=== PATIENT | female | born 1985 | race Two or more races ===

== ENCOUNTER 2019-05-01 11:55 | Emergency (ER) | payer MEDICAID ==
[2019-05-01] MEDS ORDERED: Ondansetron 4 MG/2 ML SDV IVPUSH ONE (12:34)
[2019-05-01] MEDS ORDERED: Sodium Chloride 0.9% 10 ML Syringe FLUSH PRN (12:34)
[2019-05-01] MEDS ORDERED: Sodium Chloride 0.9% 1,000 ML IV STA (12:34)
[2019-05-01] MEDS ORDERED: HYDROmorphone 0.5 MG/0.5 ML Syringe IVPUSH ONE (12:36)
--- NOTE | 2019-05-01 12:45 | EDM.PDOC ---
<Shobha Soliz - Last Filed: 05/01/19 12:35> ED HPI GENERAL MEDICAL PROBLEM - General Chief Complaint: Abdominal Pain Stated Complaint: ABDOMINAL PAIN Time Seen by Provider: 05/01/19 12:11 Source of Information: Reports: Patient History Limitations: Reports: No Limitations - History of Present Illness INITIAL COMMENTS - FREE TEXT/NARRATIVE: Patient is a pleasant 34-year-old female who presents to the ED with complaints of upper abdominal pain, nausea, vomiting, and diarrhea. She reports yesterday she felt nauseous all day and then last night at 8pm she started having diarrhea. She had three total episodes of diarrhea before she went to bed. No blood noted in the stool. This morning she woke up at 0300 because of abdominal pain in the upper quadrants. She struggled to fall back asleep because she couldn't get comfortable. Around 0700 she started having episodes of emesis. The last episode of emesis was at 0930. She denies noting blood in the emesis. At time of exam she is complaining of burning discomfort to the upper quadrants and rates it a 7/10. She is nauseous and has a mild headache. She states she gets heart burn very easily and had a test in the past to test for an ulcer, which was negative. She does not take anything for the heart burn. She denies chest pain, shortness of breath, and fever/chills. Of note, the patient's daughter had similar symptoms yesterday and felt better this morning when she woke up. She also noted that she ate at [employer] for lunch yesterday. She is not sure if she has the stomach flu her daughter had, food poisoning from [employer], or something more serious. 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 Denies: Shortness of Breath Cardiovascular: Reports: No Symptoms. Denies: Chest Pain, Edema, Lightheadedness, Syncope GI/Abdominal: Reports: Abdominal Pain (upper quadrants), Diarrhea (yesterday - 3 total episodes), Decreased Appetite, Flatus, Nausea, Vomiting (3 episodes this morning). Denies: Black Stool, Bloody Stool, Hematemesis, Melena : Reports: No Symptoms. Denies: Dysuria Musculoskeletal: Reports: No Symptoms. Denies: Neck Pain, Back Pain Skin: Reports: No Symptoms. Denies: Rash, Erythema Neurological: Reports: Headache. Denies: Dizziness, Numbness, Syncope, Tingling , Weakness Psychiatric: Reports: No Symptoms Hematologic/Lymphatic: Reports: No Symptoms ED EXAM, GI/ABD - Physical Exam Exam: See Below Exam Limited By: No Limitations General Appearance: Alert, WD/WN, No Apparent Distress Head: Atraumatic, Normocephalic Neck: Normal Inspection, Supple, Non-Tender, Full Range of Motion Respiratory/Chest: No Respiratory Distress, Lungs Clear, Normal Breath Sounds, No Accessory Muscle Use, Chest Non-Tender Cardiovascular: Normal Peripheral Pulses, Regular Rate, Rhythm, No Edema, No Gallop, No Murmur, No Rub, Systolic Murmur GI/Abdominal Exam: Normal Bowel Sounds, Soft, No Organomegaly, No Distention, No Mass, Pelvis Stable, Tender (upper quadrants - more severe in epigastric region) Back Exam: Normal Inspection, Full Range of Motion, NT Extremities: Normal Inspection, Normal Range of Motion, Non-Tender, Normal Capillary Refill, No Pedal Edema Neurological: Alert, Oriented, Normal Cognition, Normal Gait, No Motor/Sensory Deficits Psychiatric: Normal Affect, Normal Mood Skin Exam: Warm, Dry, Intact, Normal Color, No Rash Lymphatic: No Adenopathy Course - Vital Signs Last Recorded V/S: Last Vital Signs Temp 97.1 F 05/01/19 12:09 Pulse 86 05/01/19 12:09 Resp 16 02/27/20 12:09 BP 118/76 05/01/19 12:18 Pulse Ox 96 05/01/19 12:09 - Orders/Labs/Meds Orders: Active Orders 24 hr Category Date Time Status Peripheral IV Care [RC] . DIRECTED Care 05/01/19 12:35 Active Sodium Chloride 0.9% [Saline Flush] Med 05/01/19 12:34 Active 10 ml FLUSH ASDIRECTED PRN ED Antiemetic Medication Reflex [OM.PC] Stat Oth 05/01/19 12:35 Ordered Peripheral IV Insertion Adult [OM.PC] Stat Oth 05/01/19 12:34 Ordered Medication Orders Sodium Chloride (Saline Flush) 10 ml FLUSH ASDIRECTED PRN PRN Reason: Keep Vein Open Last Admin: 05/01/19 12:45 Dose: 10 ml Labs: Laboratory Tests 05/01/19 05/01/19 05/01/19 Range/Units 12:45 12:45 12:45 WBC 7.33 (3.98-10.04) K/mm3 RBC 4.80 (3.98-5.22) M/mm3 Hgb 14.4 (11.2-15.7) gm/dl Hct 44.1 (34.1-44.9) % MCV 91.9 (79.4-94.8) fl MCH 30.0 (25.6-32.2) pg MCHC 32.7 (32.2-35.5) g/dl RDW Std Deviation 41.5 (36.4-46.3) fL Plt Count 300 (182-369) K/mm3 MPV 10.1 (9.4-12.3) fl Neut % (Auto) 71.8 H (34.0-71.1) % Lymph % (Auto) 20.7 (19.3-51.7) % [place] % (Auto) 5.5 (4.7-12.5) % Eos % (Auto) 1.4 (0.7-5.8) Baso % (Auto) 0.3 (0.1-1.2) % Neut # (Auto) 5.27 (1.56-6.13) K/mm3 Lymph # (Auto) 1.52 (1.18-3.74) K/mm3 [place] # (Auto) 0.40 H (0.24-0.36) K/mm3 Eos # (Auto) 0.10 (0.04-0.36) K/mm3 Baso # (Auto) 0.02 (0.01-0.08) K/mm3 Sodium 140 (136-145) mEq/L Potassium 4.2 (3.5-5.1) mEq/L Chloride 105 (98-107) mEq/L Carbon Dioxide 26 (21-32) mEq/L Anion Gap 13.2 (5-15) BUN 8 (7-18) mg/dL Creatinine 0.5 L (0.55-1.02) mg/dL Est Cr Clr Drug Dosing 125.39 mL/min Estimated GFR (MDRD) > 60 (>60) mL/min BUN/Creatinine Ratio 16.0 (14-18) Glucose 99 (74-106) mg/dL Calcium 8.9 (8.5-10.1) mg/dL Total Bilirubin 0.3 (0.2-1.0) mg/dL AST 20 (15-37) U/L ALT 38 (14-59) U/L Alkaline Phosphatase 77 (46-116) U/L Total Protein 7.8 (6.4-8.2) g/dl Albumin 3.5 (3.4-5.0) g/dl Globulin 4.3 gm/dL Albumin/Globulin Ratio 0.8 L (1-2) Lipase 64 L (73-393) U/L HCG, Qual Negative (NEGATIVE) Urine Color (Yellow) Urine Appearance (Clear) Urine pH (5.0-8.0) Ur Specific [place] (1.005-1.030) Urine Protein (Negative) Urine Glucose (UA) (Negative) Urine Ketones (Negative) Urine Occult Blood (Negative) Urine Nitrite (Negative) Urine Bilirubin (Negative) Urine Urobilinogen (0.2-1.0) Ur Leukocyte Esterase (Negative) Urine RBC (0-5) /hpf Urine WBC (0-5) /hpf Ur Squamous Epith Cells (0-5) /hpf Amorphous Sediment (NOT SEEN) /hpf Urine Bacteria (FEW) /hpf Urine Mucus (FEW) /hpf 05/01/19 Range/Units 14:25 WBC (3.98-10.04) K/mm3 RBC (3.98-5.22) M/mm3 Hgb (11.2-15.7) gm/dl Hct (34.1-44.9) % MCV (79.4-94.8) fl MCH (25.6-32.2) pg MCHC (32.2-35.5) g/dl RDW Std Deviation (36.4-46.3) fL Plt Count (182-369) K/mm3 MPV (9.4-12.3) fl Neut % (Auto) (34.0-71.1) % Lymph % (Auto) (19.3-51.7) % [place] % (Auto) (4.7-12.5) % Eos % (Auto) (0.7-5.8) Baso % (Auto) (0.1-1.2) % Neut # (Auto) (1.56-6.13) K/mm3 Lymph # (Auto) (1.18-3.74) K/mm3 [place] # (Auto) (0.24-0.36) K/mm3 Eos # (Auto) (0.04-0.36) K/mm3 Baso # (Auto) (0.01-0.08) K/mm3 Sodium (136-145) mEq/L Potassium (3.5-5.1) mEq/L Chloride (98-107) mEq/L Carbon Dioxide (21-32) mEq/L Anion Gap (5-15) BUN (7-18) mg/dL Creatinine (0.55-1.02) mg/dL Est Cr Clr Drug Dosing mL/min Estimated GFR (MDRD) (>60) mL/min BUN/Creatinine Ratio (14-18) Glucose (74-106) mg/dL Calcium (8.5-10.1) mg/dL Total Bilirubin (0.2-1.0) mg/dL AST (15-37) U/L ALT (14-59) U/L Alkaline Phosphatase (46-116) U/L Total Protein (6.4-8.2) g/dl Albumin (3.4-5.0) g/dl Globulin gm/dL Albumin/Globulin Ratio (1-2) Lipase (73-393) U/L HCG, Qual (NEGATIVE) Urine Color Light yellow (Yellow) Urine Appearance Slt cloudy H (Clear) Urine pH 8.0 (5.0-8.0) Ur Specific [place] 1.025 (1.005-1.030) Urine Protein Negative (Negative) Urine Glucose (UA) Negative (Negative) Urine Ketones Negative (Negative) Urine Occult Blood Negative (Negative) Urine Nitrite Negative (Negative) Urine Bilirubin Negative (Negative) Urine Urobilinogen 0.2 (0.2-1.0) Ur Leukocyte Esterase Trace H (Negative) Urine RBC 0-5 (0-5) /hpf Urine WBC 5-10 H (0-5) /hpf Ur Squamous Epith Cells 5-10 H (0-5) /hpf Amorphous Sediment Many H (NOT SEEN) /hpf Urine Bacteria Moderate H (FEW) /hpf Urine Mucus Few (FEW) /hpf Meds: Medications Generic Name Dose Route Start Last Admin Trade Name Freq PRN Reason Stop Dose Admin Sodium Chloride 10 ml 05/01/19 12:34 05/01/19 12:45 Saline Flush FLUSH 10 ml ASDIRECTED PRN Administration Keep Vein Open Discontinued Medications Generic Name Dose Route Start Last Admin Trade Name Freq PRN Reason Stop Dose Admin Diphenhydramine HCl 25 mg 05/01/19 13:27 05/01/19 13:30 Benadryl IVPUSH 05/01/19 13:28 25 mg ONETIME ONE Administration Hydromorphone HCl 0.5 mg 05/01/19 12:36 05/01/19 12:58 Dilaudid IVPUSH 05/01/19 12:37 0.5 mg ONETIME ONE Administration Sodium Chloride 1,000 mls @ 1,000 mls/hr 05/01/19 12:34 05/01/19 13:00 Normal Saline IV 05/01/19 13:33 1,000 mls/hr .BOLUS STA Administration Ondansetron HCl 4 mg 05/01/19 12:34 05/01/19 12:56 Zofran IVPUSH 05/01/19 12:35 4 mg ONETIME ONE Administration Departure - Departure Disposition: Home, Self-Care 01 Clinical Impression: Gastroenteritis - Discharge Information Prescriptions: Ondansetron [Zofran ODT] 4 mg PO Q6H PRN #20 tab.dis PRN Reason: Nausea\vomiting Referrals: Pooja Nguyen PA-C [Primary Care Provider] - Forms: ED Department Discharge Additional Instructions: Drink plenty of fluids. Take zofran every 6 hours as needed for nausea and vomiting. Please return if you are worse. Sepsis Event Note - Evaluation Sepsis Screening Result: No Definite Risk - Focused Exam Vital Signs: Vital Signs Temp Pulse Resp BP Pulse Ox 05/01/19 12:18 118/76 05/01/19 12:09 97.1 F 86 16 124/74 96 Date Exam was Performed: 05/01/19 Time Exam was Performed: 12:35 - My Orders Last 24 Hours: My Active Orders 05/01/19 12:34 Sodium Chloride 0.9% [Saline Flush] 10 ml FLUSH ASDIRECTED PRN Peripheral IV Insertion Adult [OM.PC] Stat 05/01/19 12:35 Peripheral IV Care [RC] . DIRECTED ED Antiemetic Medication Reflex [OM.PC] Stat - Assessment/Plan Last 24 Hours: My Active Orders 05/01/19 12:34 Sodium Chloride 0.9% [Saline Flush] 10 ml FLUSH ASDIRECTED PRN Peripheral IV Insertion Adult [OM.PC] Stat 05/01/19 12:35 Peripheral IV Care [RC] . DIRECTED ED Antiemetic Medication Reflex [OM.PC] Stat <Jonathan Miles - Last Filed: 05/01/19 14:52> Course - Re-Assessments/Exams Free Text/Narrative Re-Assessment/Exam: 05/01/19 14:48 I examined the patient myself and I agree with Shobha's assessment and plan. I ordered an IV NS 1L bolus, zofran 4mg IV, dilaudid 0.5mg IV, labs, and UA. She reacted to the dilaudid so I ordered some benadryl 25mg IV. Her CBC and CMP look good. Her HCG is negative. Her UA shows no UTI. She feels better. I will discharge her home. Departure - Departure Time of Disposition: 14:50 Condition: Good - Discharge Information *PRESCRIPTION DRUG MONITORING PROGRAM REVIEWED*: Not Applicable *COPY OF PRESCRIPTION DRUG MONITORING REPORT IN PATIENT MICHAEL: Not Applicable Sepsis Event Note - Focused Exam Date Exam was Performed: 05/01/19 Time Exam was Performed: 14:48
[2019-05-01] MEDS ORDERED: diphenhydrAMINE 50 MG/ML SDV IVPUSH ONE (13:27)
== END 2019-05-01 15:05 | disposition home or self-care (01) ==
LOC: JD.ED 11:55
DX: K52.9 Noninfective gastroenteritis and colitis, unspecified (principal); F17.210 Nicotine dependence, cigarettes, uncomplicated; Z88.0 Allergy status to penicillin; Z88.5 Allergy status to narcotic agent
CPT/HCPCS: 36415; 80053; 81001; 83690; 84703; 85025; 96361; 96374; 96375; 99284; J1170; J1200; J2405; J7030; 99283

== ENCOUNTER 2020-07-07 05:11 | Observation (INO) | payer MEDICAID ==
[2020-07-07] MEDS ORDERED: Ketorolac 15 MG/ML SDV IVPUSH ONE (05:36)
[2020-07-07] MEDS ORDERED: Lactated Ringers 1,000 ML IV ONE (05:36)
[2020-07-07] MEDS ORDERED: Ondansetron 4 MG/2 ML SDV IVPUSH ONE (05:36)
[2020-07-07] MEDS ORDERED: Sodium Chloride 0.9% 10 ML Syringe FLUSH PRN ×2 (05:36→06:07)
--- NOTE | 2020-07-07 05:44 | EDM.PDOC ---
ED HPI GENERAL MEDICAL PROBLEM - General Chief Complaint: Abdominal Pain Stated Complaint: RIGHT ABDOMINAL PAIN Time Seen by Provider: 07/07/20 05:25 Source of Information: Reports: Patient History Limitations: Reports: No Limitations - History of Present Illness INITIAL COMMENTS - FREE TEXT/NARRATIVE: Patient arrived ED via private vehicle Patient is a somewhat limited historian Reports onset of symptoms was 07/05/2020 Subsequently stated she has had "stomach trouble" over the weekend Pain is demonstrated to the right mid abdomen Pain severity got worse last night after she ate dinner Pain is also worse in supine position vs sitting/upright Pain also exacerbated by bumps in the road on the way to ED Current pain severity is rated 7/10 Endorses 4 episodes of vomiting over the past 2 days, last occurrence about 0430 this morning She took acetaminophen about 0300 without improvement Last bowel movement was yesterday and was normal She notes urinary frequency and itching/burning vaginally, but unable to state duration Right Abdomen Pain Score (Numeric/FACES): 7 - Related Data Allergies Allergy/AdvReac Type Severity Reaction Status Date / Time amoxicillin Allergy Cannot Verified 07/07/20 05:29 Remember hydromorphone [From Dilaudid] Allergy Redness Verified 07/07/20 05:29 Home Meds: Home Meds . 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: - Past Surgical History Female Surgical History: Reports: Tubal Ligation Social & Family History - Family History Respiratory: Reports: None GI: Reports: None - Tobacco Use Tobacco Use Status *Q: Never Tobacco User - Caffeine Use Caffeine Use: Reports: Coffee ED ROS GENERAL - Review of Systems Review Of Systems: See Below Free Text/Narrative/Comment: Constitutional - no fever; no anorexia Cardiovascular - no chest pain Respiratory - no shortness of breath; no cough Gastrointestinal - abdominal pain; nausea; vomiting; no diarrhea Genitourinary - no dysuria; urinary frequency Musculoskeletal - no neck pain; no back pain; no extremity injury Neurological - no headache; no speech disturbance; no weakness ED EXAM, GENERAL - Physical Exam Exam: See Below Free Text/Narrative:: Constitutional - awake; alert; moderate pain distress Head - no facial swelling or weakness Eyes - extra ocular motion intact; conjunctiva normal ENT - no nasal deformity; no epistaxis; normal phonation Neck - no swelling Respiratory - normal respiratory effort; no crackles or wheezing; no stridor Cardiovascular - regular rhythm; normal rate; S1; S2; grade 1/6 systolic murmur GI/Abdomen - normal bowel sounds; soft; moderate tenderness right mid, upper, and lower abdomen; no rebound; no guarding; no mass; no CVA tenderness Musculoskeletal - grossly normal strength and motion; no swelling or deformity Skin - warm; dry Neurologic - normal speech; no weakness; gait intact Psychiatric - normal mood and affect; memory and attention normal Course - Vital Signs Text/Narrative:: . Considered etiologies included: Abdominal pain, nausea, vomiting, gastritis, biliary colic, cholecystitis, appendicitis, UTI Symptoms and examination were discussed Investigations were initiated Analgesic treatment was provided with ketorolac Ondansetron was given for nausea At reevaluation there was mild improvement in pain, severity rated 6/10 Results were discussed, and findings for pericecal inflammation of uncertain etiology Consideration for outpatient treatment was discussed Patient indicated preference for hospital admission, due to exacerbation of pain with eating Additional analgesic treatment was provided with morphine 0825 - Case was discussed with Dr. Rodas (hospitalist) who accepted patient for admission Final radiology report was subsequently received, with diagnosis of diverticulitis antibiotic therapy was ordered with levofloxacin and metronidazole Last Recorded V/S: Last Vital Signs Temp 36.9 C 07/07/20 05:26 Pulse 64 07/07/20 05:26 Resp 16 07/07/20 05:26 BP 128/81 07/07/20 05:26 Pulse Ox 96 07/07/20 05:26 - Orders/Labs/Meds Orders: Active Orders 24 hr Category Date Time Status Patient Status [ADT] Routine ADT 07/07/20 08:27 Ordered Peripheral IV Care [RC] . DIRECTED Care 07/07/20 05:35 Active Peripheral IV Care [RC] . DIRECTED Care 07/07/20 05:37 Active CORONAVIRUS COVID-19 [facility]WIS [MOLEC] Stat Lab 07/07/20 09:04 Ordered Sodium Chloride 0.9% [Saline Flush] Med 07/07/20 05:36 Active 10 ml FLUSH ASDIRECTED PRN Sodium Chloride 0.9% [Saline Flush] Med 07/07/20 06:07 Active 10 ml FLUSH ONETIME PRN Peripheral IV Insertion Adult [OM.PC] Stat Oth 07/07/20 05:34 Ordered Medication Orders Sodium Chloride (Sodium Chloride 0.9% 10 Ml Syringe) 10 ml FLUSH ASDIRECTED PRN PRN Reason: Keep Vein Open Last Admin: 07/07/20 06:04 Dose: 10 ml Documented by: ERNESTINA Sodium Chloride (Sodium Chloride 0.9% 10 Ml Syringe) 10 ml FLUSH ONETIME PRN PRN Reason: Keep Vein Open Last Admin: 07/07/20 07:03 Dose: 10 ml Documented by: MAX Labs: Laboratory Tests 07/07/20 07/07/20 07/07/20 Range/Units 06:00 06:00 06:00 WBC 12.21 H (3.98-10.04) K/mm3 RBC 4.81 (3.98-5.22) M/mm3 Hgb 14.5 (11.2-15.7) gm/dl Hct 43.6 (34.1-44.9) % MCV 90.6 (79.4-94.8) fl MCH 30.1 (25.6-32.2) pg MCHC 33.3 (32.2-35.5) g/dl RDW Std Deviation 40.4 (36.4-46.3) fL Plt Count 265 (182-369) K/mm3 MPV 10.8 (9.4-12.3) fl Neut % (Auto) 80.5 H (34.0-71.1) % Lymph % (Auto) 13.2 L (19.3-51.7) % [place] % (Auto) 5.3 (4.7-12.5) % Eos % (Auto) 0.7 (0.7-5.8) Baso % (Auto) 0.1 (0.1-1.2) % Neut # (Auto) 9.84 H (1.56-6.13) K/mm3 Lymph # (Auto) 1.61 (1.18-3.74) K/mm3 [place] # (Auto) 0.65 H (0.24-0.36) K/mm3 Eos # (Auto) 0.08 (0.04-0.36) K/mm3 Baso # (Auto) 0.01 (0.01-0.08) K/mm3 Manual Slide Review Normal smear Sodium 144 (136-145) mEq/L Potassium 3.8 (3.5-5.1) mEq/L Chloride 106 (98-107) mEq/L Carbon Dioxide 26 (21-32) mEq/L Anion Gap 15.8 H (5-15) BUN 9 (7-18) mg/dL Creatinine 0.6 (0.55-1.02) mg/dL Est Cr Clr Drug Dosing 98.75 mL/min Estimated GFR (MDRD) > 60 (>60) mL/min BUN/Creatinine Ratio 15.0 (14-18) Glucose 96 (74-106) mg/dL Lactic Acid 0.6 (0.4-2.0) mmol/L Calcium 8.3 L (8.5-10.1) mg/dL Total Bilirubin 0.4 (0.2-1.0) mg/dL AST 16 (15-37) U/L ALT 35 (14-59) U/L Alkaline Phosphatase 52 (46-116) U/L Total Protein 7.4 (6.4-8.2) g/dl Albumin 3.6 (3.4-5.0) g/dl Globulin 3.8 gm/dL Albumin/Globulin Ratio 1.0 (1-2) Lipase 64 L (73-393) U/L Urine Color (Yellow) Urine Appearance (Clear) Urine pH (5.0-8.0) Ur Specific [place] (1.005-1.030) Urine Protein (Negative) Urine Glucose (UA) (Negative) Urine Ketones (Negative) Urine Occult Blood (Negative) Urine Nitrite (Negative) Urine Bilirubin (Negative) Urine Urobilinogen (0.2-1.0) Ur Leukocyte Esterase (Negative) Urine RBC (0-5) /hpf Urine WBC (0-5) /hpf Ur Squamous Epith Cells (0-5) /hpf Urine Bacteria (FEW) /hpf Urine Mucus (FEW) /hpf Urine Trichomonas (NOT SEEN) Urine HCG, Qual (NEGATIVE) 07/07/20 07/07/20 Range/Units 07:50 07:50 WBC (3.98-10.04) K/mm3 RBC (3.98-5.22) M/mm3 Hgb (11.2-15.7) gm/dl Hct (34.1-44.9) % MCV (79.4-94.8) fl MCH (25.6-32.2) pg MCHC (32.2-35.5) g/dl RDW Std Deviation (36.4-46.3) fL Plt Count (182-369) K/mm3 MPV (9.4-12.3) fl Neut % (Auto) (34.0-71.1) % Lymph % (Auto) (19.3-51.7) % [place] % (Auto) (4.7-12.5) % Eos % (Auto) (0.7-5.8) Baso % (Auto) (0.1-1.2) % Neut # (Auto) (1.56-6.13) K/mm3 Lymph # (Auto) (1.18-3.74) K/mm3 [place] # (Auto) (0.24-0.36) K/mm3 Eos # (Auto) (0.04-0.36) K/mm3 Baso # (Auto) (0.01-0.08) K/mm3 Manual Slide Review Sodium (136-145) mEq/L Potassium (3.5-5.1) mEq/L Chloride (98-107) mEq/L Carbon Dioxide (21-32) mEq/L Anion Gap (5-15) BUN (7-18) mg/dL Creatinine (0.55-1.02) mg/dL Est Cr Clr Drug Dosing mL/min Estimated GFR (MDRD) (>60) mL/min BUN/Creatinine Ratio (14-18) Glucose (74-106) mg/dL Lactic Acid (0.4-2.0) mmol/L Calcium (8.5-10.1) mg/dL Total Bilirubin (0.2-1.0) mg/dL AST (15-37) U/L ALT (14-59) U/L Alkaline Phosphatase (46-116) U/L Total Protein (6.4-8.2) g/dl Albumin (3.4-5.0) g/dl Globulin gm/dL Albumin/Globulin Ratio (1-2) Lipase (73-393) U/L Urine Color Yellow (Yellow) Urine Appearance Clear (Clear) Urine pH 7.0 (5.0-8.0) Ur Specific [place] 1.015 (1.005-1.030) Urine Protein Negative (Negative) Urine Glucose (UA) Negative (Negative) Urine Ketones Negative (Negative) Urine Occult Blood Trace-intact H (Negative) Urine Nitrite Negative (Negative) Urine Bilirubin Negative (Negative) Urine Urobilinogen 0.2 (0.2-1.0) Ur Leukocyte Esterase 2+ H (Negative) Urine RBC 5-10 H (0-5) /hpf Urine WBC 10-20 H (0-5) /hpf Ur Squamous Epith Cells 0-5 (0-5) /hpf Urine Bacteria Few (FEW) /hpf Urine Mucus Few (FEW) /hpf Urine Trichomonas Few H (NOT SEEN) Urine HCG, Qual Negative (NEGATIVE) Meds: Medications Generic Name Dose Route Start Last Admin Trade Name Freq PRN Reason Stop Dose Admin Sodium Chloride 10 ml 07/07/20 05:36 07/07/20 06:04 Sodium Chloride 0.9% 10 Ml Syringe FLUSH 10 ml ASDIRECTED PRN Administration Keep Vein Open Sodium Chloride 10 ml 07/07/20 06:07 07/07/20 07:03 Sodium Chloride 0.9% 10 Ml Syringe FLUSH 10 ml ONETIME PRN Administration Keep Vein Open Discontinued Medications Generic Name Dose Route Start Last Admin Trade Name Freq PRN Reason Stop Dose Admin Diatrizoate Meglum/Diatrizoate Sod 40 ml 07/07/20 06:07 07/07/20 07:03 Diatrizoate Meglumine/Diatrizoate Sodium 37% 120 Ml Bottle PO 07/07/20 06:08 15 ml ONETIME ONE Administration Lactated Ringer's 1,000 mls @ 500 mls/hr 07/07/20 05:36 07/07/20 06:04 Ringers, Lactated IV 07/07/20 07:35 500 mls/hr .BOLUS ONE Administration Iopamidol 100 ml 07/07/20 06:07 07/07/20 07:03 Iopamidol 612 Mg/Ml 100 Ml Bottle IVPUSH 07/07/20 06:08 100 ml ONETIME ONE Administration Ketorolac Tromethamine 15 mg 07/07/20 05:36 07/07/20 06:04 Ketorolac 15 Mg/Ml Sdv IVPUSH 07/07/20 05:37 15 mg ONETIME ONE Administration Morphine Sulfate 4 mg 07/07/20 08:27 07/07/20 08:50 Morphine 4 Mg/Ml Syringe IVPUSH 07/07/20 08:28 4 mg ONETIME ONE Administration Ondansetron HCl 4 mg 07/07/20 05:36 07/07/20 06:04 Ondansetron 4 Mg/2 Ml Sdv IVPUSH 07/07/20 05:37 4 mg ONETIME ONE Administration - Radiology Interpretation Free Text/Narrative:: CT abdomen/pelvis, IV contrast, preliminary radiology report: 1. Inflammatory fat stranding adjacent to the cecum. Differential diagnostic considerations include inflammatory bowel disease, typhlitis, Yersinia infection or other colitis or even malignant neoplasm. 2. Prominent vascularity adjacent to the uterus consistent with pelvic congestion syndrome. CT abdomen/pelvis, IV contrast, final radiologist interpretation: 1. Inflammatory change around the cecum. On review of previous CT abdomen and pelvis there appears to be a small diverticulum off the tip of the cecum and findings most likely represent cecal diverticulitis. 2. Increase vasculature next to the uterus most likely representing mild pelvic congestion 3. Other findings believed to be within normal limits as noted above. Departure - Departure Time of Disposition: 08:27 Disposition: Refer to Observation Condition: Fair Clinical Impression: Diverticulitis - Discharge Information Sepsis Event Note (ED) - Evaluation Sepsis Screening Result: No Definite Risk - Focused Exam Vital Signs: Vital Signs Temp Pulse Resp BP Pulse Ox 07/07/20 05:26 36.9 C 64 16 128/81 96 - My Orders Last 24 Hours: My Active Orders 07/07/20 05:34 Peripheral IV Insertion Adult [OM.PC] Stat 07/07/20 05:35 Peripheral IV Care [RC] . DIRECTED 07/07/20 05:36 Sodium Chloride 0.9% [Saline Flush] 10 ml FLUSH ASDIRECTED PRN 07/07/20 05:37 Peripheral IV Care [RC] . DIRECTED 07/07/20 06:07 Sodium Chloride 0.9% [Saline Flush] 10 ml FLUSH ONETIME PRN 07/07/20 08:27 Patient Status [ADT] Routine 07/07/20 09:04 CORONAVIRUS COVID-19 [facility] [MOLEC] Stat - Assessment/Plan Last 24 Hours: My Active Orders 07/07/20 05:34 Peripheral IV Insertion Adult [OM.PC] Stat 07/07/20 05:35 Peripheral IV Care [RC] . DIRECTED 07/07/20 05:36 Sodium Chloride 0.9% [Saline Flush] 10 ml FLUSH ASDIRECTED PRN 07/07/20 05:37 Peripheral IV Care [RC] . DIRECTED 07/07/20 06:07 Sodium Chloride 0.9% [Saline Flush] 10 ml FLUSH ONETIME PRN 07/07/20 08:27 Patient Status [ADT] Routine 07/07/20 09:04 CORONAVIRUS COVID-19 [facility] [MOLEC] Stat
[2020-07-07] MEDS ORDERED: Diatrizoate Meglumine/Diatrizoate Sodium 37% 120 ML Bottle PO ONE (06:07)
[2020-07-07] MEDS ORDERED: Iopamidol 612 MG/ML 100 ML Bottle IVPUSH ONE (06:07)
[2020-07-07] MEDS ORDERED: Morphine 4 MG/ML Syringe IVPUSH ONE (08:27)
--- NOTE | 2020-07-07 08:40 | CT ---
CT abdomen and pelvis Technique: Multiple axial sections were obtained from above the dome of the diaphragm inferiorly through the pubic symphysis. Intravenous and oral contrast was utilized. Reconstructed coronal and sagittal images were obtained. Comparison: Prior CT abdomen and pelvis exam of 03/30/17. Findings: Visualized lung bases show nothing acute. Liver contains no focal parenchymal abnormality. Minimal low density is noted next to the ligamentum teres fissure which is incidental. Spleen size is normal. Adrenal glands show no nodule. Kidneys show symmetric contrast enhancement without hydronephrosis or mass. Pancreas appears within normal limits. Aorta shows no aneurysm. No retroperitoneal adenopathy or mesenteric abnormalities are seen. There is inflammatory change being seen around the cecum. Appendix is seen which is normal in size. No pelvic mass or adenopathy is seen. Slightly prominent vasculature is seen around the uterus. Bone window settings were reviewed which show no acute osseous abnormality. Impression: 1. Inflammatory change around the cecum. On review of previous CT abdomen and pelvis there appears to be a small diverticulum off the tip of the cecum and findings most likely represent cecal diverticulitis. 2. Increase vasculature next to the uterus most likely representing mild pelvic congestion. 3. Other findings believed to be within normal limits as noted above. Diagnostic code #3 I minimally disagree with differential given by preliminary report from [facility], finalized on 07/07/20, 8:51 AM CDT, code 2
[2020-07-07] MEDS ORDERED: metroNIDAZOLE/Normal Saline 500 MG in Premix Bag 1 BAG IV ONE (09:17)
[2020-07-07] MEDS ORDERED: Levofloxacin/Dextrose 5%-Water 750 MG in Premix Bag 1 BAG IV ONE (09:17)
--- NOTE | 2020-07-07 09:44 | PCM.HP.2 ---
H&P History of Present Illness - General Date of Service: 07/07/20 Admit Problem/Dx: Admission Diagnosis/Problem Admission Diagnosis/Problem Abdominal pain Right Abdomen Pain Score (Numeric/FACES): 7 - Related Data Allergies/Adverse Reactions: Allergies Allergy/AdvReac Type Severity Reaction Status Date / Time amoxicillin Allergy Cannot Verified 07/07/20 05:29 Remember hydromorphone [From Dilaudid] Allergy Redness Verified 07/07/20 05:29 Home Medications: Home Meds . [No Known Home Meds] 07/07/20 [History] Past Medical History - Past Health History Medical/Surgical History: Denies Medical/Surgical History [employer] History: Reports: - Past Surgical History Female Surgical History: Reports: Tubal Ligation Social & Family History - Family History Respiratory: Reports: None GI: Reports: None - Tobacco Use Tobacco Use Status *Q: Never Tobacco User - Caffeine Use Caffeine Use: Reports: Coffee H&P Review of Systems - Review of Systems: Review Of Systems: See Below General: Reports: No Symptoms HEENT: Reports: No Symptoms Pulmonary: Reports: No Symptoms Cardiovascular: Reports: No Symptoms Gastrointestinal: Reports: Abdominal Pain, Nausea, Vomiting Genitourinary: Reports: No Symptoms Musculoskeletal: Reports: No Symptoms Skin: Reports: No Symptoms Psychiatric: Reports: No Symptoms Exam - Exam Exam: See Below - Vital Signs Vital Signs: Last Vital Signs Temp 98.4 F 07/07/20 05:26 Pulse 64 07/07/20 05:26 Resp 16 07/07/20 05:26 BP 128/81 07/07/20 05:26 Pulse Ox 96 07/07/20 05:26 Weight: 210 lb 8 oz - Exam General: Alert, Oriented HEENT: Conjunctiva Clear, EOMI, Hearing Intact, Mucosa Moist & [place] Neck: Supple, Trachea Midline Lungs: Clear to Auscultation, Normal Respiratory Effort Cardiovascular: Regular Rate, Regular Rhythm GI/Abdominal Exam: Normal Bowel Sounds, Soft, No Distention, Tender (RLQ ). No: Guarding, Rigid, Rebound Extremities: Normal Inspection, No Pedal Edema Peripheral Pulses: 2+: Radial (L), Radial (R) Skin: Warm, Dry, Intact Neurological: Cranial Nerves Intact, Reflexes Equal Bilateral Neuro Extensive - Mental Status: Alert, Oriented x3 Psychiatric: Alert - Patient Data Lab Results Last 24 hrs: Laboratory Results - last 24 hr 07/07/20 07/07/20 07/07/20 Range/Units 06:00 06:00 06:00 WBC 12.21 H (3.98-10.04) K/mm3 RBC 4.81 (3.98-5.22) M/mm3 Hgb 14.5 (11.2-15.7) gm/dl Hct 43.6 (34.1-44.9) % MCV 90.6 (79.4-94.8) fl MCH 30.1 (25.6-32.2) pg MCHC 33.3 (32.2-35.5) g/dl RDW Std Deviation 40.4 (36.4-46.3) fL Plt Count 265 (182-369) K/mm3 MPV 10.8 (9.4-12.3) fl Neut % (Auto) 80.5 H (34.0-71.1) % Lymph % (Auto) 13.2 L (19.3-51.7) % [place] % (Auto) 5.3 (4.7-12.5) % Eos % (Auto) 0.7 (0.7-5.8) Baso % (Auto) 0.1 (0.1-1.2) % Neut # (Auto) 9.84 H (1.56-6.13) K/mm3 Lymph # (Auto) 1.61 (1.18-3.74) K/mm3 [place] # (Auto) 0.65 H (0.24-0.36) K/mm3 Eos # (Auto) 0.08 (0.04-0.36) K/mm3 Baso # (Auto) 0.01 (0.01-0.08) K/mm3 Manual Slide Review Normal smear Sodium 144 (136-145) mEq/L Potassium 3.8 (3.5-5.1) mEq/L Chloride 106 (98-107) mEq/L Carbon Dioxide 26 (21-32) mEq/L Anion Gap 15.8 H (5-15) BUN 9 (7-18) mg/dL Creatinine 0.6 (0.55-1.02) mg/dL Est Cr Clr Drug Dosing 98.75 mL/min Estimated GFR (MDRD) > 60 (>60) mL/min BUN/Creatinine Ratio 15.0 (14-18) Glucose 96 (74-106) mg/dL Lactic Acid 0.6 (0.4-2.0) mmol/L Calcium 8.3 L (8.5-10.1) mg/dL Total Bilirubin 0.4 (0.2-1.0) mg/dL AST 16 (15-37) U/L ALT 35 (14-59) U/L Alkaline Phosphatase 52 (46-116) U/L Total Protein 7.4 (6.4-8.2) g/dl Albumin 3.6 (3.4-5.0) g/dl Globulin 3.8 gm/dL Albumin/Globulin Ratio 1.0 (1-2) Lipase 64 L (73-393) U/L Urine Color (Yellow) Urine Appearance (Clear) Urine pH (5.0-8.0) Ur Specific [place] (1.005-1.030) Urine Protein (Negative) Urine Glucose (UA) (Negative) Urine Ketones (Negative) Urine Occult Blood (Negative) Urine Nitrite (Negative) Urine Bilirubin (Negative) Urine Urobilinogen (0.2-1.0) Ur Leukocyte Esterase (Negative) Urine RBC (0-5) /hpf Urine WBC (0-5) /hpf Ur Squamous Epith Cells (0-5) /hpf Urine Bacteria (FEW) /hpf Urine Mucus (FEW) /hpf Urine Trichomonas (NOT SEEN) Urine HCG, Qual (NEGATIVE) 07/07/20 07/07/20 Range/Units 07:50 07:50 WBC (3.98-10.04) K/mm3 RBC (3.98-5.22) M/mm3 Hgb (11.2-15.7) gm/dl Hct (34.1-44.9) % MCV (79.4-94.8) fl MCH (25.6-32.2) pg MCHC (32.2-35.5) g/dl RDW Std Deviation (36.4-46.3) fL Plt Count (182-369) K/mm3 MPV (9.4-12.3) fl Neut % (Auto) (34.0-71.1) % Lymph % (Auto) (19.3-51.7) % [place] % (Auto) (4.7-12.5) % Eos % (Auto) (0.7-5.8) Baso % (Auto) (0.1-1.2) % Neut # (Auto) (1.56-6.13) K/mm3 Lymph # (Auto) (1.18-3.74) K/mm3 [place] # (Auto) (0.24-0.36) K/mm3 Eos # (Auto) (0.04-0.36) K/mm3 Baso # (Auto) (0.01-0.08) K/mm3 Manual Slide Review Sodium (136-145) mEq/L Potassium (3.5-5.1) mEq/L Chloride (98-107) mEq/L Carbon Dioxide (21-32) mEq/L Anion Gap (5-15) BUN (7-18) mg/dL Creatinine (0.55-1.02) mg/dL Est Cr Clr Drug Dosing mL/min Estimated GFR (MDRD) (>60) mL/min BUN/Creatinine Ratio (14-18) Glucose (74-106) mg/dL Lactic Acid (0.4-2.0) mmol/L Calcium (8.5-10.1) mg/dL Total Bilirubin (0.2-1.0) mg/dL AST (15-37) U/L ALT (14-59) U/L Alkaline Phosphatase (46-116) U/L Total Protein (6.4-8.2) g/dl Albumin (3.4-5.0) g/dl Globulin gm/dL Albumin/Globulin Ratio (1-2) Lipase (73-393) U/L Urine Color Yellow (Yellow) Urine Appearance Clear (Clear) Urine pH 7.0 (5.0-8.0) Ur Specific [place] 1.015 (1.005-1.030) Urine Protein Negative (Negative) Urine Glucose (UA) Negative (Negative) Urine Ketones Negative (Negative) Urine Occult Blood Trace-intact H (Negative) Urine Nitrite Negative (Negative) Urine Bilirubin Negative (Negative) Urine Urobilinogen 0.2 (0.2-1.0) Ur Leukocyte Esterase 2+ H (Negative) Urine RBC 5-10 H (0-5) /hpf Urine WBC 10-20 H (0-5) /hpf Ur Squamous Epith Cells 0-5 (0-5) /hpf Urine Bacteria Few (FEW) /hpf Urine Mucus Few (FEW) /hpf Urine Trichomonas Few H (NOT SEEN) Urine HCG, Qual Negative (NEGATIVE) Result Diagrams: 07/07/20 06:00 07/07/20 06:00 Sepsis Event Note - Evaluation Sepsis Screening Result: No Definite Risk - Focused Exam Vital Signs: Vital Signs Temp Pulse Resp BP Pulse Ox 07/07/20 05:26 98.4 F 64 16 128/81 96 Problem List Initiated/Reviewed/Updated: Yes Orders Last 24hrs: Active Orders 24 hr Category Date Time Status Patient Status [ADT] Routine ADT 07/07/20 08:27 Active Peripheral IV Care [RC] . DIRECTED Care 07/07/20 05:35 Active Peripheral IV Care [RC] . DIRECTED Care 07/07/20 05:37 Active CORONAVIRUS COVID-19 LEWIS [MOLEC] Stat Lab 07/07/20 09:05 Received Levofloxacin/Dextrose 5%-Water [Levaquin in D5W 750 MG/ Med 07/07/20 09:17 Active 150 ML] 750 mg Premix Bag 1 bag IV ONETIME Sodium Chloride 0.9% [Saline Flush] Med 07/07/20 05:36 Active 10 ml FLUSH ASDIRECTED PRN Sodium Chloride 0.9% [Saline Flush] Med 07/07/20 06:07 Active 10 ml FLUSH ONETIME PRN metroNIDAZOLE/Normal Saline [Flagyl in NS 500 MG/100 ML Med 07/07/20 09:17 Active ] 500 mg Premix Bag 1 bag IV ONETIME Peripheral IV Insertion Adult [OM.PC] Stat Oth 07/07/20 05:34 Ordered Medication Orders Levofloxacin/Dextrose 750 mg/ (Premix) 150 mls @ 100 mls/hr IV ONETIME ONE Stop: 07/07/20 10:46 Metronidazole 500 mg/ Premix 100 mls @ 100 mls/hr IV ONETIME ONE Stop: 07/07/20 10:16 Sodium Chloride (Sodium Chloride 0.9% 10 Ml Syringe) 10 ml FLUSH ASDIRECTED PRN PRN Reason: Keep Vein Open Last Admin: 07/07/20 06:04 Dose: 10 ml Documented by: ERNESTINA Sodium Chloride (Sodium Chloride 0.9% 10 Ml Syringe) 10 ml FLUSH ONETIME PRN PRN Reason: Keep Vein Open Last Admin: 07/07/20 07:03 Dose: 10 ml Documented by: LUDWJAM Assessment/Plan Comment:: A: Diverticulitis -Cecal Diverticulitis predicated on CT Scan Abd/Pelvis, Tory change around the cecum, appears to be a small diverticulum off the tip of the cecum findings most likely exhibit display representative of cecal diverticulitis -Noncomplicated Leukocytosis -Mild, 12.2, neutrophils 80.5% in setting of diverticulitis Urinary tract infection -Less leuk esterase, white blood cells 10-20, few bacteria -Few trichomonas Trichomonas infection -Asymptomatic -Sexually active Obesity -BMI 39.8 Plan: Admit to observation Ciprofloxacin 400 mg IV every 12 hours, Flagyl 500 mg IV every 8 hours Surgical consultation if patient worsens (worsening abdominal pain, leukocytosis or development of peritonitis) Transition to p.o. antibiotics when able 10 to 14-day treatment course N.p.o. advance as tolerated Electrolyte replacement as indicated LR @ 100cc/hr Flagyl IV for diverticulitis but will also cover for trichomonas. At time of discharge patient's sexual partner should be notified to seek treatment/testing for trichomonas Full code - Mortality Measure Prognosis:: Good
[2020-07-07] MEDS: Lactated Ringers 1,000 ML IV SCH ×2 (10:18→19:13)
[2020-07-07] MEDS: Acetaminophen 325 MG Tab PO PRN ×2 (15:58→20:44)
[2020-07-07] MEDS ORDERED: Albuterol 6.7 GM Inhaler INH PRN (16:15)
[2020-07-07] MEDS ORDERED: Albuterol 6.7 GM Inhaler INH ONE (16:50)
[2020-07-07] MEDS: metroNIDAZOLE/Normal Saline 500 MG in Premix Bag 1 BAG IV SCH (17:48)
[2020-07-07] MEDS: Ondansetron 4 MG/2 ML SDV IV PRN (20:44)
[2020-07-08] MEDS: metroNIDAZOLE/Normal Saline 500 MG in Premix Bag 1 BAG IV SCH ×2 (03:00→09:47)
[2020-07-08] MEDS: Lactated Ringers 1,000 ML IV SCH (03:01)
[2020-07-08] MEDS: Ondansetron 4 MG/2 ML SDV IV PRN (03:50)
[2020-07-08] MEDS ORDERED: HYDROmorphone 1 MG/ML Syringe IVPUSH PRN (03:59)
[2020-07-08] MEDS: Morphine 4 MG/ML Syringe IVPUSH PRN ×2 (04:26→08:36)
[2020-07-08] MEDS: Acetaminophen 325 MG Tab PO PRN (08:37)
[2020-07-08] MEDS ORDERED: Enoxaparin 40 MG/0.4 ML Syringe SUBCUT SCH (09:00)
--- NOTE | 2020-07-08 10:06 | PCM.DCSUM1 ---
Discharge Summary - Hospital Course HPI Initial Comments: Patient presented to the emergency department with complaints of abdominal pain. She states that this started on Sunday, 07/05. Of note, she states she does have a history of "stomach issues ". She states she developed the pain last night after eating a cheeseburger at [employer]. She states she woke in the middle the night and developed abdominal cramping pain. The pain waxed and waned. She also states she vomited about 4 times over the course of the 2 days leading up to her coming to the emergency department. Denied any fever, chills, diarrhea or constipation. She states that when she woke in the middle the night it hurt worse to lay flat so she propped herself up on pillows and took some ibuprofen and waited for the abdominal pain to go away. She states by 5 AM that morning the pain had still not gone away and she decided to pursue treatment in the emergency department. She also complained of urinary frequency, itching and burning in the vaginal area. She is not able to state how long this has been going on for. While in the emergency department, CT of the abdomen was completed and it showed:1. Inflammatory change around the cecum. On review of previous CT abdomen and pelvis there appears to be small diverticulum off the tip of the cecum and findings most likely represent cecal diverticulitis. 2. Increased vasculature next to the uterus most likely representing mild pelvic congestion. 3. Other findings believed to be within normal limits. [facility] and started on IV metronidazole and clindamycin. She was given IV fluids and medicated for pain. Diagnosis: Stroke: No - Discharge Data Discharge Date: 07/08/20 Discharge Disposition: Home, Self-Care 01 Condition: Good - Referral to Home Health Primary Care Physician: Pooja Nguyen PA-C - Discharge Diagnosis/Problem(s) (1) Diverticulitis SNOMED Code(s): 213670977 ICD Code: K57.92 - DVTRCLI OF INTEST, PART UNSP, W/O PERF OR ABSCESS W/O BLEED Status: Acute Priority: High Current Visit: Yes - Patient Summary/Data Hospital Course: 07/07/20 Assessment/Plan Comment:: A: Diverticulitis -Cecal Diverticulitis predicated on CT Scan Abd/Pelvis, Tory change around the cecum, appears to be a small diverticulum off the tip of the cecum findings most likely international account representative of cecal diverticulitis -Noncomplicated Leukocytosis -Mild, 12.2, neutrophils 80.5% in setting of diverticulitis Urinary tract infection -Less leuk esterase, white blood cells 10-20, few bacteria -Few trichomonas Trichomonas infection -Asymptomatic -Sexually active Obesity -BMI 39.8 Plan: Admit to observation Ciprofloxacin 400 mg IV every 12 hours, Flagyl 500 mg IV every 8 hours Surgical consultation if patient worsens (worsening abdominal pain, leukocytosis or development of peritonitis) Transition to p.o. antibiotics when able 10 to 14-day treatment course N.p.o. advance as tolerated Electrolyte replacement as indicated LR @ 100cc/hr Flagyl IV for diverticulitis but will also cover for trichomonas. At time of discharge patient's sexual partner should be notified to seek treatment/testing for trichomonas Full code 07/08/20 -White count is normal -Patient has been afebrile -Tolerating a bland diet -Still has some abdominal good discomfort however it is significantly less and is able to tolerate p.o. pain medications -Has been up ambulating in the freed independently and tolerating well -Dietitian has been in to visit with the patient -We will discharge to home on oral antibiotics and pain medications. -She will need to follow-up with her primary care physician in 7 to 10 days however she has an appointment scheduled for July 13 and this will be adequate. - Patient Instructions Diet: Regular Diet as Tolerated Activity: As Tolerated Driving: May Drive Today Notify Provider of: Fever, Increased Pain, Nausea and/or Vomiting Other/Special Instructions: Follow-up with your primary care physician in 1 week to 10 days. You stated you have an appointment scheduled with Pooja Nguyen on July 13. This will be an appropriate timeframe for reevaluation. You will need to take Levaquin 750 mg once a day and metronidazole 500 mg 3 times a day. You will take these medications for a total of 7 days. Keep in mind you cannot drink alcohol within 72 hours of taking metronidazole because it can make you profusely ill. -Strongly recommend that you have your significant other be tested for trichomonas as this was seen in your urine sample and it is generally a sexually transmitted infection. The antibiotic you are being treated with should clear up this infection however you can be reinfected by having sexual intercourse. I have sent you a prescription for Zofran, a nausea medication, you can take this every 6 hours as needed for nausea. Be sure to allow the pill to fully dissolve under your tongue and wait at least 30 minutes prior to attempting to eat or drink anything. I have given you Percocet for the pain. You can take 1 tab every 6 hours as needed for more severe pain. Otherwise you can manage her pain with Tylenol 650 mg every 4 hours or ibuprofen 600 mg every 6-8 hours. Keep in mind, that the narcotic pain medication can make you constipated if you are using it frequently. You may need to take a stool softener if that is the case. Continue to eat a bland diet such as bananas, applesauce, oatmeal, and toast. The dietitian did visit with you today and gave you information regarding diet for your condition. It is likely going to take a few more days before you feel completely better. Should you develop fever, chills, nausea, vomiting or diarrhea do not hesitate following up with your primary care physician. - Discharge Plan Prescriptions/Med Rec: metroNIDAZOLE [Flagyl] 500 mg PO TID #21 tablet levoFLOXacin [Levaquin] 750 mg PO DAILY #7 tab oxyCODONE HCl/Acetaminophen [Percocet 5-325 mg Tablet] 1 each PO Q6H PRN #10 tablet PRN Reason: Pain (Moderate 4-6) Ondansetron [Zofran ODT] 4 mg PO Q6H PRN #10 tab.dis PRN Reason: Nausea/Vomiting Home Medications: Home Meds Albuterol Sulfate [Albuterol Sulfate HFA] 2 puff INH ASDIRECTED PRN 07/07/20 [History] Ondansetron [Zofran ODT] 4 mg PO Q6H PRN #10 tab.dis 07/08/20 [Rx] levoFLOXacin [Levaquin] 750 mg PO DAILY #7 tab 07/08/20 [Rx] metroNIDAZOLE [Flagyl] 500 mg PO TID #21 tablet 07/08/20 [Rx] oxyCODONE HCl/Acetaminophen [Percocet 5-325 mg Tablet] 1 each PO Q6H PRN #10 tablet 07/08/20 [Rx] Oxygen Therapy Mode: Room Air Patient Handouts: Diverticulitis, [id number], Cannabis Use Disorder, What You Need to Know About Marijuana Use, Steps to Quit Smoking Referrals: Pooja Nguyen PA-C [Primary Care Provider] - 07/13/20 11:30 am (Come 15 minutes prior to your appointment to register.) - Discharge Summary/Plan Comment DC Time >30 min.: No - General Info Date of Service: 07/08/20 Admission Dx/Problem (Free Text: Admission Diagnosis/Problem Admission Diagnosis/Problem Abdominal pain Subjective Update: Mya states she is feeling much better than when she came in. She still does have a small amount of abdominal discomfort however it is to be expected. She is tolerating her diet well and has been up and ambulating around the unit. She has been afebrile. Functional Status: Reports: Pain Controlled, Tolerating Diet, Ambulating, Urinating - Review of Systems General: Reports: No Symptoms. Denies: Fever, Chills HEENT: Reports: No Symptoms Pulmonary: Reports: No Symptoms Cardiovascular: Reports: No Symptoms Gastrointestinal: Reports: Abdominal Pain (Small amount of upper abdominal discomfort however significantly decreased from when she came into the emergency department). Denies: Constipation, Diarrhea, Nausea, Vomiting Genitourinary: Reports: No Symptoms Musculoskeletal: Reports: No Symptoms Skin: Reports: No Symptoms Neurological: Reports: No Symptoms Psychiatric: Reports: No Symptoms - Patient Data Vitals - Most Recent: Last Vital Signs Temp 97.9 F 07/08/20 08:09 Pulse 69 07/08/20 08:09 Resp 18 07/08/20 08:09 BP 111/62 07/08/20 08:09 Pulse Ox 95 07/08/20 08:09 Weight - Most Recent: 209 lb 11.2 oz I&O - Last 24 hours: Intake & Output 07/07/20 07/08/20 07/08/20 22:59 06:59 14:59 Intake Total 1083 1808 Output Total 400 1650 Balance 683 158 Lab Results - Last 24 hrs: Laboratory Results - last 24 hr 07/07/20 07/08/20 07/08/20 Range/Units 09:05 04:59 04:59 WBC 6.70 (3.98-10.04) K/mm3 RBC 4.45 (3.98-5.22) M/mm3 Hgb 13.3 (11.2-15.7) gm/dl Hct 41.4 (34.1-44.9) % MCV 93.0 (79.4-94.8) fl MCH 29.9 (25.6-32.2) pg MCHC 32.1 L (32.2-35.5) g/dl RDW Std Deviation 42.0 (36.4-46.3) fL Plt Count 218 (182-369) K/mm3 MPV 11.0 (9.4-12.3) fl Neut % (Auto) 68.8 (34.0-71.1) % Lymph % (Auto) 22.7 (19.3-51.7) % [place] % (Auto) 6.6 (4.7-12.5) % Eos % (Auto) 1.3 (0.7-5.8) Baso % (Auto) 0.3 (0.1-1.2) % Neut # (Auto) 4.61 (1.56-6.13) K/mm3 Lymph # (Auto) 1.52 (1.18-3.74) K/mm3 [place] # (Auto) 0.44 H (0.24-0.36) K/mm3 Eos # (Auto) 0.09 (0.04-0.36) K/mm3 Baso # (Auto) 0.02 (0.01-0.08) K/mm3 Sodium 143 (136-145) mEq/L Potassium 3.9 (3.5-5.1) mEq/L Chloride 109 H (98-107) mEq/L Carbon Dioxide 25 (21-32) mEq/L Anion Gap 12.9 (5-15) BUN 4 L (7-18) mg/dL Creatinine 0.7 (0.55-1.02) mg/dL Est Cr Clr Drug Dosing 84.65 mL/min Estimated GFR (MDRD) > 60 (>60) mL/min BUN/Creatinine Ratio 5.7 L (14-18) Glucose 108 H (74-106) mg/dL Calcium 8.2 L (8.5-10.1) mg/dL Total Bilirubin 0.3 (0.2-1.0) mg/dL AST 12 L (15-37) U/L ALT 29 (14-59) U/L Alkaline Phosphatase 48 (46-116) U/L Total Protein 6.4 (6.4-8.2) g/dl Albumin 3.0 L (3.4-5.0) g/dl Globulin 3.4 gm/dL Albumin/Globulin Ratio 0.9 L (1-2) SARS-CoV-2 RNA (LEWIS) Negative (NEGATIVE) Med Orders - Current: Current Medications Acetaminophen (Acetaminophen 325 Mg Tab) 650 mg PO Q4H PRN PRN Reason: Pain (Mild 1-3)/fever Last Admin: 07/08/20 08:37 Dose: 650 mg Documented by: Enoxaparin Sodium (Enoxaparin 40 Mg/0.4 Ml Syringe) 40 mg SUBCUT DAILY [facility] [place] Last Admin: 07/08/20 08:36 Dose: Not Given Documented by: Lactated Ringer's (Ringers, Lactated) 1,000 mls @ 125 mls/hr IV ASDIRECTED [facility] [place] Last Admin: 07/08/20 03:01 Dose: 125 mls/hr Documented by: Metronidazole 500 mg/ Premix 100 mls @ 100 mls/hr IV Q8H [facility] [place] Last Admin: 07/08/20 09:47 Dose: 100 mls/hr Documented by: Levofloxacin/Dextrose 750 mg/ (Premix) 150 mls @ 100 mls/hr IV Q24H [facility] [place] Last Admin: 07/08/20 09:48 Dose: 100 mls/hr Documented by: Morphine Sulfate (Morphine 4 Mg/Ml Syringe) 4 mg IVPUSH Q3H PRN PRN Reason: Pain Last Admin: 07/08/20 08:36 Dose: 4 mg Documented by: Ondansetron HCl (Ondansetron 4 Mg/2 Ml Sdv) 4 mg IV Q4H PRN PRN Reason: Nausea/Vomiting Last Admin: 07/08/20 03:50 Dose: 4 mg Documented by: Sodium Chloride (Sodium Chloride 0.9% 10 Ml Syringe) 10 ml FLUSH ASDIRECTED PRN PRN Reason: Keep Vein Open Last Admin: 07/07/20 06:04 Dose: 10 ml Documented by: Discontinued Medications Albuterol (Albuterol 6.7 Gm Inhaler) Confirm Administered Dose 6.7 gm INH .STK- MED ONE Stop: 07/07/20 16:51 Last Admin: 07/07/20 16:54 Dose: 2 inhaler Documented by: Diatrizoate Meglum/Diatrizoate Sod (Diatrizoate Meglumine/Diatrizoate Sodium 37% 120 Ml Bottle) 40 ml PO ONETIME ONE Stop: 07/07/20 06:08 Last Admin: 07/07/20 07:03 Dose: 15 ml Documented by: Hydromorphone HCl (Hydromorphone 1 Mg/Ml Syringe) 1 mg IVPUSH Q4H PRN PRN Reason: Pain Lactated Ringer's (Ringers, Lactated) 1,000 mls @ 500 mls/hr IV .BOLUS ONE Stop: 07/07/20 07:35 Last Admin: 07/07/20 06:04 Dose: 500 mls/hr Documented by: Levofloxacin/Dextrose 750 mg/ (Premix) 150 mls @ 100 mls/hr IV ONETIME ONE Stop: 07/07/20 10:46 Last Admin: 07/07/20 10:40 Dose: 100 mls/hr Documented by: Metronidazole 500 mg/ Premix 100 mls @ 100 mls/hr IV ONETIME ONE Stop: 07/07/20 10:16 Last Admin: 07/07/20 10:20 Dose: 100 mls/hr Documented by: Iopamidol (Iopamidol 612 Mg/Ml 100 Ml Bottle) 100 ml IVPUSH ONETIME ONE Stop: 07/07/20 06:08 Last Admin: 07/07/20 07:03 Dose: 100 ml Documented by: Ketorolac Tromethamine (Ketorolac 15 Mg/Ml Sdv) 15 mg IVPUSH ONETIME ONE Stop: 07/07/20 05:37 Last Admin: 07/07/20 06:04 Dose: 15 mg Documented by: Morphine Sulfate (Morphine 4 Mg/Ml Syringe) 4 mg IVPUSH ONETIME ONE Stop: 07/07/20 08:28 Last Admin: 07/07/20 08:50 Dose: 4 mg Documented by: Ondansetron HCl (Ondansetron 4 Mg/2 Ml Sdv) 4 mg IVPUSH ONETIME ONE Stop: 07/07/20 05:37 Last Admin: 07/07/20 06:04 Dose: 4 mg Documented by: Sodium Chloride (Sodium Chloride 0.9% 10 Ml Syringe) 10 ml FLUSH ONETIME PRN PRN Reason: Keep Vein Open Last Admin: 07/07/20 07:03 Dose: 10 ml Documented by: - Exam Quality Assessment: Reports: DVT Prophylaxis. Denies: Supplemental Oxygen General: Reports: Alert, Oriented, Cooperative, No Acute Distress HEENT: Reports: Pupils Equal, Mucous Membr. Moist/[place] Neck: Reports: Supple, Trachea Midline Lungs: Reports: Clear to Auscultation, Normal Respiratory Effort Cardiovascular: Reports: Regular Rate, Regular Rhythm, No Murmurs GI/Abdominal Exam: Normal Bowel Sounds, Soft, Tender (upper abdomen). No: No Distention (Female) Exam: Deferred Rectal (Female) Exam: Deferred Back Exam: Reports: Normal Inspection, Full Range of Motion Extremities: Normal Inspection, Normal Range of Motion, Non-Tender, No Pedal Edema, Normal Capillary Refill Skin: Reports: Warm, Dry, Intact Neurological: Reports: No New Focal Deficit Psy/Mental Status: Reports: Alert, Normal Affect, Normal Mood
[2020-07-08] MEDS ORDERED: Levofloxacin/Dextrose 5%-Water 750 MG in Premix Bag 1 BAG IV SCH (10:30)
== END 2020-07-08 12:54 | disposition home or self-care (01) ==
LOC: JD.ED 05:11 → JD.MS 08:27
PROVIDERS: ADMIT Internal Medicine; ATTEND Internal Medicine
DX: K57.30 Diverticulosis of large intestine without perforation or abscess without bleeding (principal); D72.829 Elevated white blood cell count, unspecified; N39.0 Urinary tract infection, site not specified; A59.9 Trichomoniasis, unspecified; E66.9 Obesity, unspecified; Z68.39 Body mass index [BMI] 39.0-39.9, adult; Z88.1 Allergy status to other antibiotic agents; Z88.8 Allergy status to other drugs, medicaments and biological substances
CPT/HCPCS: 36415; 74177; 74177-26; 80053; 81001; 81025; 83605; 83690; 85025; 94640; 96365; 96366; 96368; 96375; 96376; 99217; 99219; 99285; 99285-25; A9270-GY; G0378; J1885; J1956; J2270; J2405; J3490; J7120; Q9963; Q9967; U0002

== ENCOUNTER 2022-04-02 10:52 | Emergency (ER) | payer MEDICAID ==
[2022-04-02] MEDS ORDERED: Ondansetron 4 MG/2 ML SDV IVPUSH ONE (11:22)
[2022-04-02] MEDS ORDERED: Morphine 2 MG/ML SYRINGE IVPUSH ONE (11:22)
[2022-04-02] MEDS ORDERED: Sodium Chloride 0.9% 1,000 ML IV STA (11:22)
[2022-04-02] MEDS ORDERED: Iopamidol 612 MG/ML 100 ML Bottle IVPUSH ONE (12:31)
[2022-04-02] MEDS ORDERED: Sodium Chloride 0.9% 10 ML Syringe FLUSH ONE (12:46)
[2022-04-02] MEDS ORDERED: Ketorolac 30 MG/ML SDV IVPUSH ONE (14:17)
[2022-04-02] MEDS ORDERED: metroNIDAZOLE 500 MG Tab PO ONE (15:27)
[2022-04-02] MEDS ORDERED: Acetaminophen/oxyCODONE 325-5 MG Tab PO ONE (15:27)
[2022-04-02] MEDS ORDERED: Levofloxacin 750 MG Tab PO ONE (15:35)
== END 2022-04-02 16:25 | disposition home or self-care (01) ==
LOC: JD.ED 10:52
DX: K57.32 Diverticulitis of large intestine without perforation or abscess without bleeding (principal); J45.909 Unspecified asthma, uncomplicated; Z88.0 Allergy status to penicillin; Z88.5 Allergy status to narcotic agent; Z72.0 Tobacco use; Z79.51 Long term (current) use of inhaled steroids
CPT/HCPCS: 36415; 74177; 80053; 81001; 84703; 85025; 86140; 96361; 96374; 96375; 99284; A9270; J1885; J2270; J2405; J3490; J7030; Q9967

== ENCOUNTER 2022-11-27 13:12 | Emergency (ER) | payer MEDICAID ==
[2022-11-27] MEDS ORDERED: Sodium Chloride 0.9% 10 ML Syringe FLUSH PRN ×2 (13:26→14:29)
[2022-11-27 14:19] LABS: BASOPHILS PERCENT AUTO 0.5 % (0.0-1.0); EOSINOPHILS ABSOLUTE AUTO 0.1 K/mm3 (0.0-0.4); EOSINOPHILS PERCENT AUTO 1.5 % (0.0-6.0); HEMATOCRIT 38.2 % (37.0-47.0); HEMOGLOBIN 12.9 gm/dl (12.0-16.0); IMMATURE GRAN ABSOLUTE AUTO 0.01 K/mm3 (0.00-0.05); IMMATURE GRAN PERCENT AUTO 0.2 % (0.0-0.4); LYMPHOCYTES ABSOLUTE AUTO 1.3 K/mm3 (1.0-4.8); LYMPHOCYTES PERCENT AUTO 21.9 % (24.0-44.0); MEAN CORPUSCULAR HEMOGLOBIN 30.5 pg (28.0-32.0); MEAN CORPUSCULAR HGB CONC 33.8 g/dl (32.0-36.0); MEAN CORPUSCULAR VOLUME 90.3 fl (83.0-99.0); MEAN PLATELET VOLUME 9.8 fl (9.4-12.3); MONOCYTES ABSOLUTE AUTO 0.5 K/mm3 (0.0-0.8); MONOCYTES PERCENT AUTO 8.3 % (0.0-8.0); NEUTROPHILS ABSOLUTE AUTO 4.1 K/mm3 (1.8-7.7); NEUTROPHILS PERCENT AUTO 67.6 % (41.0-71.0); PLATELET COUNT,PLT 204 K/mm3 (150-400); RED BLOOD CELL COUNT 4.23 M/mm3 (4.10-5.30); WHITE BLOOD CELL COUNT,WBC 6.03 K/mm3 (3.9-11.3)
[2022-11-27] MEDS ORDERED: Morphine 2 MG/ML SYRINGE IVPUSH ONE ×2 (14:19→18:12)
[2022-11-27] MEDS ORDERED: Naloxone 0.4 MG/ML SDV IVPUSH PRN ×2 (14:19→19:42)
[2022-11-27] MEDS ORDERED: Ondansetron 4 MG/2 ML SDV IVPUSH ONE (14:20)
[2022-11-27] MEDS ORDERED: Iopamidol 612 MG/ML 100 ML Bottle IVPUSH ONE (14:29)
[2022-11-27 14:48] LABS: A/G RATIO 0.9 (1-2); ALBUMIN 3.3 g/dl (3.4-5.0); ANION GAP 12.2 (5-15); BILIRUBIN TOTAL 0.3 mg/dL (0.2-1.0); C-REACTIVE PROTEIN 7.5 mg/dL (<1.0); CALCIUM 8.4 mg/dL (8.5-10.1); CREATININE 0.7 mg/dL (0.55-1.02); EST CRCL DRUG DOSING (CG) 79.04 mL/min; POTASSIUM,K 3.2 mEq/L (3.5-5.1); PROTEIN TOTAL,TP 7.2 g/dl (6.4-8.2)
[2022-11-27] MEDS ORDERED: Sodium Chloride 0.9% 1,000 ML IV SCH (15:00)
[2022-11-27 15:42] LABS: APPEARANCE,URINE CLEAR (Clear); BILIRUBIN,URINE NEGATIVE (Negative); COLOR,URINE YELLOW (Yellow); GLUCOSE,URINE NEGATIVE (Negative); KETONES,URINE NEGATIVE (Negative); LEUKOCYTE ESTERASE,URINE TRACE (Negative); NITRITE,URINE NEGATIVE (Negative); OCCULT BLOOD,URINE TRACE-INTACT (Negative); PROTEIN,URINE NEGATIVE (Negative)
[2022-11-27 15:51] LABS: BACTERIA,URINE MANY /hpf (FEW); MUCUS,URINE MANY /hpf (FEW)
[2022-11-27] MEDS ORDERED: Levofloxacin/Dextrose 5%-Water 750 MG in Premix Bag 1 BAG IV ONE (18:10)
[2022-11-27] MEDS ORDERED: metroNIDAZOLE/Normal Saline 500 MG in Premix Bag 1 BAG IV ONE (18:10)
[2022-11-27] MEDS ORDERED: fentaNYL 100 MCG/2 ML SDV IVPUSH ONE (19:42)
== END 2022-11-27 20:47 ==
LOC: JD.ED 13:12
DX: K83.1 Obstruction of bile duct (principal); K81.9 Cholecystitis, unspecified; Z87.891 Personal history of nicotine dependence
CPT/HCPCS: 36415; 74177; 76705; 80053; 81001; 83690; 85025; 86140; 87086; 96361; 96365; 96366; 96368; 96375; 96376; 99285; J1956; J2270; J2405; J3010; J3490; J7030; Q9967